=== PATIENT | male | born 1940 | race African-American/Black ===

== ENCOUNTER 2018-07-04 19:09 | Observation (INO) ==
[2018-07-04 20:57] LABS: Basophils % 0.2 % (0.0-0.8); Eosinophils # 0.1 10*3/uL (0.0-0.87); Eosinophils % 0.9 % (0.00-10.9); Hemoglobin 14.6 GM/DL (14.0-18.0); Immature Granulocytes % 0.4 %; Immature Granulocytes Absolute 0.05 #; Lymphocytes # 1.7 10*3/uL (1.4-4.0); Lymphocytes % 13.1 % (21.2-54.2); Mean Corpuscular HGB Conc 31.7 GM/DL (32-36); Mean Corpuscular Hemoglobin 29 PG (27-34); Mean Corpuscular Volume 92.4 FL (87-102); Mean Platelet Volume 8.6 FL (9.6-12.0); Neutrophils % 77.4 % (38.7-73.9); Platelet Count 283 T/CUMM (130-400); Red Blood Count 4.98 MC/CUMM (3.8-5.5); Red Cell Distribution Width 12.7 % (9.3-17.3); White Blood Count 12.9 T/CUMM (4-12)
[2018-07-04 21:48] LABS: Albumin 3.6 G/DL (3.4-5.0); Bilirubin,Total 0.8 MG/DL (0.2-1.0); Calcium 8.9 MG/DL (8.5-10.1); Osmolality,Calculated 274.7 MOS/KG (273-304); Potassium 3.9 MMOL/L (3.5-5.1); Total Protein 7.6 G/DL (6.4-8.3)
[2018-07-04] MEDS ORDERED: PROMETHAZINE 25 MG/1 ML VIAL IM PRN (22:33)
[2018-07-04] MEDS ORDERED: NICOTINE 21 MG/24 HR PATCH TRANSDERM PRN (22:33)
[2018-07-04] MEDS ORDERED: MORPHINE 4 MG/1 ML VIAL IV PRN (22:33)
[2018-07-04] MEDS ORDERED: ONDANSETRON 4 MG/2 ML VIAL IV PRN (22:33)
[2018-07-05] MEDS: SODIUM CHLORIDE 0.9% 1,000 ML IV SCH ×3 (00:20→21:39)
[2018-07-05] MEDS ORDERED: ACETAMINOPHEN 325 MG TABLET PO PRN (14:17)
[2018-07-05] MEDS: PANTOPRAZOLE 40 MG VIAL IV SCH ×2 (14:51→21:06)
[2018-07-05] MEDS: ROSUVASTATIN 20 MG TABLET PO SCH (21:06)
[2018-07-06] MEDS: SODIUM CHLORIDE 0.9% 1,000 ML IV SCH ×2 (04:34→15:55)
[2018-07-06] MEDS: PANTOPRAZOLE 40 MG VIAL IV SCH ×2 (08:55→20:40)
[2018-07-06] MEDS: ASPIRIN EC 81 MG TABLET PO SCH (08:56)
[2018-07-06] MEDS: ROSUVASTATIN 20 MG TABLET PO SCH (20:40)
[2018-07-07] MEDS: SODIUM CHLORIDE 0.9% 1,000 ML IV SCH ×2 (01:35→14:37)
[2018-07-07] MEDS ORDERED: LIDOCAINE 2% 5 ML VIAL ONE (10:00)
[2018-07-07] MEDS ORDERED: PROPOFOL 200 MG/20 ML VIAL IV ONE (10:00)
[2018-07-07] MEDS: ASPIRIN EC 81 MG TABLET PO SCH (11:14)
[2018-07-07] MEDS: PANTOPRAZOLE 40 MG VIAL IV SCH (11:14)
[2018-07-07] MEDS: SUCRALFATE 1 GM/10 ML UDCUP PO SCH ×2 (16:48→22:04)
[2018-07-07] MEDS: ROSUVASTATIN 20 MG TABLET PO SCH (22:03)
[2018-07-08 05:44] LABS: Basophils % 0.1 % (0.0-0.8); Eosinophils # 0.2 10*3/uL (0.0-0.87); Eosinophils % 2.1 % (0.00-10.9); Hematocrit 38.8 VOL% (42.0-52.0); Immature Granulocytes % 0.6 %; Immature Granulocytes Absolute 0.05 #; Lymphocytes # 1.2 10*3/uL (1.4-4.0); Lymphocytes % 13.8 % (21.2-54.2); Mean Corpuscular HGB Conc 31.7 GM/DL (32-36); Mean Corpuscular Hemoglobin 29 PG (27-34); Mean Corpuscular Volume 92.8 FL (87-102); Mean Platelet Volume 9.1 FL (9.6-12.0); Monocytes % 11.5 % (1.7-12.7); Neutrophils # 6.3 10*3/uL (1.4-7.4); Neutrophils % 71.9 % (38.7-73.9); Platelet Count 235 T/CUMM (130-400); Red Blood Count 4.18 MC/CUMM (3.8-5.5); Red Cell Distribution Width 12.2 % (9.3-17.3)
[2018-07-08 05:45] LABS: Hemoglobin 12.3 GM/DL (14.0-18.0); White Blood Count 8.7 T/CUMM (4-12)
[2018-07-08 05:55] LABS: Osmolality,Calculated 279.4 MOS/KG (273-304); Potassium 3.8 MMOL/L (3.5-5.1)
[2018-07-08] MEDS: SUCRALFATE 1 GM/10 ML UDCUP PO SCH (08:55)
[2018-07-08] MEDS: ASPIRIN EC 81 MG TABLET PO SCH (08:56)
[2018-07-08] MEDS ORDERED: PANTOPRAZOLE 40 MG TABLET PO SCH (09:00)
[2018-07-08 12:35] VITALS: BP 123/71
== END 2018-07-08 12:32 | disposition home or self-care (01) ==
LOC: N.EDINP 19:09 → N.ED 19:09 → SUATTDRO 22:33 → N.2E 23:17
PROVIDERS: ADMIT Internal Medicine Cardiovascular Disease; ATTEND Internal Medicine

== ENCOUNTER 2020-04-16 23:36 | Inpatient (IN) ==
[2020-04-16] MEDS ORDERED: SODIUM CHLORIDE 0.9% 1,000 ML IV STA (23:58)
[2020-04-17 00:28] LABS: Basophils % 0.3 % (0.0-0.8); Eosinophils % 0.1 % (0.00-10.9); Hemoglobin 15.5 GM/DL (14.0-18.0); Immature Granulocytes % 1.8 %; Immature Granulocytes Absolute 0.18 #; Lymphocytes % 9.4 % (21.2-54.2); Mean Corpuscular HGB Conc 31.6 GM/DL (32-36); Mean Corpuscular Volume 89.6 FL (87-102); Mean Platelet Volume 9.3 FL (9.6-12.0); Monocytes % 8.2 % (1.7-12.7); Neutrophils % 80.2 % (38.7-73.9); Platelet Count 238 T/CUMM (130-400); Red Blood Count 5.47 MC/CUMM (3.8-5.5); Red Cell Distribution Width 13.2 % (9.3-17.3); White Blood Count 10.2 T/CUMM (4-12)
[2020-04-17] MEDS ORDERED: ACETAMINOPHEN 500 MG TABLET PO STA (00:31)
[2020-04-17 00:35] LABS: INR 1.1; PT Patient Result 11.3 SECS (9.8-11.9)
[2020-04-17] MEDS ORDERED: AZITHROMYCIN INJ 500 MG in SODIUM CHLORIDE 0.9% 250 ML IV STA (00:59)
[2020-04-17 01:08] LABS: Albumin 2.5 G/DL (3.4-5.0); Total Protein 10.5 G/DL (6.4-8.3)
[2020-04-17 01:20] LABS: Osmolality,Calculated 278.8 MOS/KG (273-304)
[2020-04-17 01:24] LABS: Bilirubin,Total 0.58 MG/DL (0.2-1.0)
[2020-04-17] MEDS ORDERED: DEXAMETHASONE 10 MG/1 ML VIAL IV SCH (02:00)
[2020-04-17] MEDS ORDERED: DEXTROSE 50% 25 GM/50 ML VIAL IV PRN (03:07)
[2020-04-17] MEDS ORDERED: ONDANSETRON 4 MG/2 ML VIAL IV PRN (03:07)
[2020-04-17] MEDS ORDERED: BISACODYL 5 MG TABLET PO PRN (03:07)
[2020-04-17] MEDS ORDERED: GLUCAGON 1 MG VIAL IM PRN (03:07)
[2020-04-17] MEDS: cefTRIAXone 1,000 MG in SYRINGE 1 EACH IV SCH (05:36)
[2020-04-17] MEDS: ZINC SULFATE 220 MG CAPSULE PO SCH (09:13)
[2020-04-17] MEDS: CETIRIZINE 10 MG TABLET PO SCH (09:13)
[2020-04-17] MEDS: CHOLECALCIFEROL 1,000 UNIT TABLET PO SCH (09:13)
[2020-04-17] MEDS: FAMOTIDINE 20 MG TABLET PO SCH ×2 (09:13→20:28)
[2020-04-17] MEDS: ASCORBIC ACID 500 MG TABLET PO SCH (09:13)
[2020-04-17] MEDS: ENOXAPARIN 40 MG/0.4 ML SYRINGE SUBCUT SCH (09:13)
[2020-04-17] MEDS ORDERED: REMDESIVIR 200 MG in SODIUM CHLORIDE 0.9% 210 ML IV ONE (13:00)
[2020-04-17 14:55] LABS: Bacteria,Urine Occasional /HPF (Few); Bilirubin,Urine Negative (Negative); Blood, Urine Large mg/dL (Negative); Glucose,Urine (UA) Negative (Negative); Hyaline Casts,Urine 10 /LPF (0-3); Ketones,Urine Negative (Negative); Mucus,Urine Occasional /LPF (Occasional); Nitrite,Urine Negative (Negative); Protein,Urine 30 MG/DL; RBC,Urine 103 /HPF (0-4); Urine Appearance CLOUDY (Clear); Urine Color Amber (Yellow); Urine Specific Gravity 1.021 (1.001-1.035); WBC,Urine 375 /HPF (0-6)
[2020-04-18] MEDS: cefTRIAXone 1,000 MG in SYRINGE 1 EACH IV SCH (02:32)
[2020-04-18 06:43] LABS: Basophils % 0.2 % (0.0-0.8); Eosinophils % 0.1 % (0.00-10.9); Hematocrit 40.5 VOL% (42.0-52.0); Immature Granulocytes % 2.3 %; Immature Granulocytes Absolute 0.28 #; Lymphocytes # 0.8 10*3/uL (1.4-4.0); Lymphocytes % 6.4 % (21.2-54.2); Mean Corpuscular HGB Conc 31.6 GM/DL (32-36); Mean Corpuscular Volume 90.8 FL (87-102); Mean Platelet Volume 10.1 FL (9.6-12.0); Monocytes % 8.9 % (1.7-12.7); NRBC # 0.02 10*3/uL; Neutrophils % 82.1 % (38.7-73.9); Red Blood Count 4.46 MC/CUMM (3.8-5.5); Red Cell Distribution Width 13.4 % (9.3-17.3); White Blood Count 12.4 T/CUMM (4-12)
[2020-04-18 06:51] LABS: Hemoglobin 12.8 GM/DL (14.0-18.0); Platelet Count 298 T/CUMM (130-400)
[2020-04-18] MEDS: DEXAMETHASONE 10 MG/1 ML VIAL IV SCH (09:00)
[2020-04-18] MEDS: CHOLECALCIFEROL 1,000 UNIT TABLET PO SCH (09:00)
[2020-04-18] MEDS: ASCORBIC ACID 500 MG TABLET PO SCH (09:00)
[2020-04-18] MEDS: FAMOTIDINE 20 MG TABLET PO SCH ×2 (09:00→21:49)
[2020-04-18] MEDS: CETIRIZINE 10 MG TABLET PO SCH (09:00)
[2020-04-18] MEDS: ENOXAPARIN 40 MG/0.4 ML SYRINGE SUBCUT SCH (09:03)
[2020-04-18] MEDS: REMDESIVIR 100 MG in SODIUM CHLORIDE 0.9% 230 ML IV SCH (13:34)
[2020-04-18] MEDS: ACETAMINOPHEN 325 MG TABLET PO PRN (16:41)
[2020-04-18] MEDS: AZITHROMYCIN INJ 250 MG in SODIUM CHLORIDE 0.9% 250 ML IV SCH (21:53)
[2020-04-19] MEDS: cefTRIAXone 1,000 MG in SYRINGE 1 EACH IV SCH (04:15)
[2020-04-19 06:51] LABS: Basophils % 0.2 % (0.0-0.8); Hematocrit 37.5 VOL% (42.0-52.0); Immature Granulocytes % 1.8 %; Immature Granulocytes Absolute 0.23 #; Lymphocytes # 0.9 10*3/uL (1.4-4.0); Mean Corpuscular Volume 89.7 FL (87-102); Mean Platelet Volume 9.5 FL (9.6-12.0); Monocytes % 9.1 % (1.7-12.7); NRBC # 0.03 10*3/uL; Neutrophils % 81.9 % (38.7-73.9); Platelet Count 328 T/CUMM (130-400); Red Blood Count 4.18 MC/CUMM (3.8-5.5); Red Cell Distribution Width 13.4 % (9.3-17.3); White Blood Count 12.6 T/CUMM (4-12)
[2020-04-19 07:19] LABS: Albumin 2.1 G/DL (3.4-5.0); Bilirubin,Total 1.2 MG/DL (0.2-1.0); Calcium 8.6 MG/DL (8.5-10.1); Ferritin 990.3 ng/ml (26-388); Osmolality,Calculated 292.3 MOS/KG (273-304); Total Protein 6.3 G/DL (6.4-8.3)
[2020-04-19] MEDS ORDERED: BISACODYL 5 MG TABLET PO PRN (07:32)
[2020-04-19] MEDS: ENOXAPARIN 40 MG/0.4 ML SYRINGE SUBCUT SCH (08:42)
[2020-04-19] MEDS: FAMOTIDINE 20 MG TABLET PO SCH ×2 (08:42→21:48)
[2020-04-19] MEDS: DEXAMETHASONE 10 MG/1 ML VIAL IV SCH (08:42)
[2020-04-19] MEDS: CHOLECALCIFEROL 1,000 UNIT TABLET PO SCH (08:42)
[2020-04-19] MEDS: ZINC SULFATE 220 MG CAPSULE PO SCH (08:43)
[2020-04-19] MEDS: CETIRIZINE 10 MG TABLET PO SCH (08:43)
[2020-04-19] MEDS: ASCORBIC ACID 500 MG TABLET PO SCH (08:43)
[2020-04-19] MEDS: ASPIRIN CHEW 81 MG TABLET PO SCH (08:45)
[2020-04-19] MEDS ORDERED: FELODIPINE 10 MG PO SCH (09:00)
[2020-04-19] MEDS: REMDESIVIR 100 MG in SODIUM CHLORIDE 0.9% 230 ML IV SCH (12:00)
[2020-04-19] MEDS: ROSUVASTATIN 20 MG TABLET PO SCH (21:48)
[2020-04-19] MEDS: AZITHROMYCIN INJ 250 MG in SODIUM CHLORIDE 0.9% 250 ML IV SCH (21:48)
[2020-04-20] MEDS: cefTRIAXone 1,000 MG in SYRINGE 1 EACH IV SCH (03:00)
[2020-04-20 06:06] LABS: Basophils % 0.2 % (0.0-0.8); Hematocrit 38.3 VOL% (42.0-52.0); Hemoglobin 12.2 GM/DL (14.0-18.0); Immature Granulocytes % 2.2 %; Immature Granulocytes Absolute 0.23 #; Lymphocytes % 9.4 % (21.2-54.2); Mean Corpuscular HGB Conc 31.9 GM/DL (32-36); Mean Corpuscular Volume 90.3 FL (87-102); Monocytes % 10.6 % (1.7-12.7); NRBC # 0.02 10*3/uL; Neutrophils % 77.6 % (38.7-73.9); Platelet Count 297 T/CUMM (130-400); Red Blood Count 4.24 MC/CUMM (3.8-5.5); Red Cell Distribution Width 13.3 % (9.3-17.3); White Blood Count 10.6 T/CUMM (4-12)
[2020-04-20 06:42] LABS: Alanine Aminotransferase 36 U/L (16-61); Alkaline Phosphatase 47 U/L (45-117); Aspartate Amino Transferase 50 U/L (0-37); Bilirubin,Total < 0.39 MG/DL (0.2-1.0); Blood Urea Nitrogen 29 MG/DL (7-18); Calcium 8.5 MG/DL (8.5-10.1); Estimated Glom Filtration Rate 118 ML/MIN; Glucose 140 MG/DL (74-106)
[2020-04-20 06:44] LABS: Ferritin 698.6 ng/ml (26-388)
[2020-04-20 08:34] LABS: Anisocytosis 1+; Band Neutrophils 3 % (0-10); Lymphocytes 11 % (20-55); Metamyelocytes 1 %; Platelet Estimate Normal; Segmented Neutrophils 74 % (50-85); Total Cells Counted 100
[2020-04-20 08:35] LABS: Burr Cells Few; Macrocytosis 1+; Ovalocytes Few; Target Cells Few
[2020-04-20] MEDS: CHOLECALCIFEROL 1,000 UNIT TABLET PO SCH (09:51)
[2020-04-20] MEDS: FAMOTIDINE 20 MG TABLET PO SCH ×2 (09:52→21:08)
[2020-04-20] MEDS: DEXAMETHASONE 10 MG/1 ML VIAL IV SCH (09:52)
[2020-04-20] MEDS: ENOXAPARIN 40 MG/0.4 ML SYRINGE SUBCUT SCH (09:52)
[2020-04-20] MEDS: CETIRIZINE 10 MG TABLET PO SCH (09:52)
[2020-04-20] MEDS: ASPIRIN CHEW 81 MG TABLET PO SCH (09:52)
[2020-04-20] MEDS: ASCORBIC ACID 500 MG TABLET PO SCH (09:52)
[2020-04-20] MEDS: REMDESIVIR 100 MG in SODIUM CHLORIDE 0.9% 230 ML IV SCH (13:50)
[2020-04-20] MEDS: ROSUVASTATIN 20 MG TABLET PO SCH (21:08)
[2020-04-20] MEDS: VANCOMYCIN INJ 1,250 MG in SODIUM CHLORIDE 0.9% 250 ML IV SCH (21:12)
[2020-04-21] MEDS: AZITHROMYCIN INJ 250 MG in SODIUM CHLORIDE 0.9% 250 ML IV SCH (02:33)
[2020-04-21] MEDS: cefTRIAXone 1,000 MG in SYRINGE 1 EACH IV SCH (05:11)
[2020-04-21 06:47] LABS: Calcium 8.4 MG/DL (8.5-10.1); Osmolality,Calculated 285.3 MOS/KG (273-304)
[2020-04-21] MEDS: FAMOTIDINE 20 MG TABLET PO SCH ×2 (09:45→20:09)
[2020-04-21] MEDS: ENOXAPARIN 40 MG/0.4 ML SYRINGE SUBCUT SCH (09:45)
[2020-04-21] MEDS: DEXAMETHASONE 10 MG/1 ML VIAL IV SCH (09:45)
[2020-04-21] MEDS: ASPIRIN CHEW 81 MG TABLET PO SCH (09:45)
[2020-04-21] MEDS: ZINC SULFATE 220 MG CAPSULE PO SCH (09:46)
[2020-04-21] MEDS: CHOLECALCIFEROL 1,000 UNIT TABLET PO SCH (09:46)
[2020-04-21] MEDS: CETIRIZINE 10 MG TABLET PO SCH (09:46)
[2020-04-21] MEDS: ASCORBIC ACID 500 MG TABLET PO SCH (09:46)
[2020-04-21] MEDS: VANCOMYCIN INJ 1,250 MG in SODIUM CHLORIDE 0.9% 250 ML IV SCH ×2 (11:20→20:14)
[2020-04-21] MEDS: REMDESIVIR 100 MG in SODIUM CHLORIDE 0.9% 230 ML IV SCH (14:35)
[2020-04-21] MEDS: ROSUVASTATIN 20 MG TABLET PO SCH (20:09)
[2020-04-22] MEDS: cefTRIAXone 1,000 MG in SYRINGE 1 EACH IV SCH (02:45)
[2020-04-22 05:14] LABS: Basophils # 0.1 10*3/uL (0.0-0.2); Basophils % 0.4 % (0.0-0.8); Eosinophils # 0.1 10*3/uL (0.0-0.87); Eosinophils % 0.8 % (0.00-10.9); Hematocrit 36.6 VOL% (42.0-52.0); Immature Granulocytes % 5.1 %; Immature Granulocytes Absolute 0.61 #; Lymphocytes # 1.8 10*3/uL (1.4-4.0); Lymphocytes % 14.9 % (21.2-54.2); Mean Corpuscular HGB Conc 32.8 GM/DL (32-36); Mean Corpuscular Volume 88.2 FL (87-102); Mean Platelet Volume 9.3 FL (9.6-12.0); Monocytes % 11.3 % (1.7-12.7); Neutrophils % 67.5 % (38.7-73.9); Platelet Count 381 T/CUMM (130-400); Red Blood Count 4.15 MC/CUMM (3.8-5.5); Red Cell Distribution Width 13.2 % (9.3-17.3)
[2020-04-22 05:58] LABS: Bilirubin,Total 0.4 MG/DL (0.2-1.0); Calcium 7.9 MG/DL (8.5-10.1); Osmolality,Calculated 278.5 MOS/KG (273-304); Total Protein 5.7 G/DL (6.4-8.3)
[2020-04-22 06:49] LABS: Band Neutrophils 2 % (0-10); Hypochromasia 1+; Lymphocytes 17 % (20-55); Metamyelocytes 6 %; Segmented Neutrophils 65 % (50-85); Total Cells Counted 100
[2020-04-22 06:50] LABS: Ovalocytes Slight; Platelet Estimate Normal; Polychromasia Slight
[2020-04-22] MEDS ORDERED: POTASSIUM CHLORIDE 20 MEQ TABLET PO PRN (07:31)
[2020-04-22] MEDS: VANCOMYCIN INJ 1,250 MG in SODIUM CHLORIDE 0.9% 250 ML IV SCH ×2 (08:33→20:29)
[2020-04-22] MEDS: ENOXAPARIN 40 MG/0.4 ML SYRINGE SUBCUT SCH (08:34)
[2020-04-22] MEDS: AZITHROMYCIN 250 MG TABLET PO SCH (08:35)
[2020-04-22] MEDS: DEXAMETHASONE 4 MG TABLET PO SCH (08:35)
[2020-04-22] MEDS: CETIRIZINE 10 MG TABLET PO SCH (08:35)
[2020-04-22] MEDS: ASPIRIN CHEW 81 MG TABLET PO SCH (08:35)
[2020-04-22] MEDS: ASCORBIC ACID 500 MG TABLET PO SCH (08:35)
[2020-04-22] MEDS: CHOLECALCIFEROL 1,000 UNIT TABLET PO SCH (08:35)
[2020-04-22] MEDS: FAMOTIDINE 20 MG TABLET PO SCH ×2 (08:36→20:24)
[2020-04-22] MEDS: ROSUVASTATIN 20 MG TABLET PO SCH (20:24)
[2020-04-23] MEDS: cefTRIAXone 1,000 MG in SYRINGE 1 EACH IV SCH (03:25)
[2020-04-23 06:41] LABS: Calcium 8.5 MG/DL (8.5-10.1); Osmolality,Calculated 278.7 MOS/KG (273-304)
[2020-04-23] MEDS: ENOXAPARIN 40 MG/0.4 ML SYRINGE SUBCUT SCH (08:26)
[2020-04-23] MEDS: ASCORBIC ACID 500 MG TABLET PO SCH (08:26)
[2020-04-23] MEDS: CHOLECALCIFEROL 1,000 UNIT TABLET PO SCH (08:27)
[2020-04-23] MEDS: DEXAMETHASONE 4 MG TABLET PO SCH (08:27)
[2020-04-23] MEDS: AZITHROMYCIN 250 MG TABLET PO SCH (08:27)
[2020-04-23] MEDS: ASPIRIN CHEW 81 MG TABLET PO SCH (08:27)
[2020-04-23] MEDS: ZINC SULFATE 220 MG CAPSULE PO SCH (08:27)
[2020-04-23] MEDS: FAMOTIDINE 20 MG TABLET PO SCH ×2 (08:28→20:09)
[2020-04-23] MEDS: VANCOMYCIN INJ 1,250 MG in SODIUM CHLORIDE 0.9% 250 ML IV SCH (08:28)
[2020-04-23] MEDS: CETIRIZINE 10 MG TABLET PO SCH (12:28)
[2020-04-23] MEDS: ROSUVASTATIN 20 MG TABLET PO SCH (20:09)
[2020-04-24] MEDS: cefTRIAXone 1,000 MG in SYRINGE 1 EACH IV SCH (04:30)
[2020-04-24 05:39] LABS: Basophils % 0.2 % (0.0-0.8); Hematocrit 37.1 VOL% (42.0-52.0); Immature Granulocytes % 3.8 %; Immature Granulocytes Absolute 0.57 #; Lymphocytes # 1.2 10*3/uL (1.4-4.0); Lymphocytes % 8.1 % (21.2-54.2); Mean Corpuscular HGB Conc 32.3 GM/DL (32-36); Mean Corpuscular Volume 87.7 FL (87-102); Neutrophils % 80.9 % (38.7-73.9); Platelet Count 465 T/CUMM (130-400); Red Blood Count 4.23 MC/CUMM (3.8-5.5); Red Cell Distribution Width 13.2 % (9.3-17.3); White Blood Count 14.9 T/CUMM (4-12)
[2020-04-24 05:58] LABS: Albumin 2.1 G/DL (3.4-5.0); Bilirubin,Total 1.1 MG/DL (0.2-1.0); Calcium 8.6 MG/DL (8.5-10.1); Osmolality,Calculated 277.8 MOS/KG (273-304); Total Protein 5.9 G/DL (6.4-8.3)
[2020-04-24 06:18] LABS: Hypochromasia 2+; Lymphocytes 8 % (20-55); Myelocytes 1 %; Segmented Neutrophils 84 % (50-85); Total Cells Counted 100
[2020-04-24 06:19] LABS: Microcytosis 1+; Platelet Estimate Increased; Target Cells Slight
[2020-04-24] MEDS: ASPIRIN CHEW 81 MG TABLET PO SCH (08:39)
[2020-04-24] MEDS: DEXAMETHASONE 4 MG TABLET PO SCH (08:39)
[2020-04-24] MEDS: ASCORBIC ACID 500 MG TABLET PO SCH (08:40)
[2020-04-24] MEDS: AZITHROMYCIN 250 MG TABLET PO SCH (08:40)
[2020-04-24] MEDS: FAMOTIDINE 20 MG TABLET PO SCH ×2 (08:40→21:34)
[2020-04-24] MEDS: CETIRIZINE 10 MG TABLET PO SCH (08:40)
[2020-04-24] MEDS: ENOXAPARIN 40 MG/0.4 ML SYRINGE SUBCUT SCH (08:40)
[2020-04-24] MEDS: CHOLECALCIFEROL 1,000 UNIT TABLET PO SCH (12:14)
[2020-04-24] MEDS: ROSUVASTATIN 20 MG TABLET PO SCH (21:34)
[2020-04-25 06:03] LABS: Basophils # 0.1 10*3/uL (0.0-0.2); Basophils % 0.3 % (0.0-0.8); Hematocrit 37.8 VOL% (42.0-52.0); Hemoglobin 12.4 GM/DL (14.0-18.0); Immature Granulocytes % 4.1 %; Immature Granulocytes Absolute 0.63 #; Lymphocytes # 1.3 10*3/uL (1.4-4.0); Lymphocytes % 8.5 % (21.2-54.2); Mean Corpuscular HGB Conc 32.8 GM/DL (32-36); Mean Corpuscular Volume 87.7 FL (87-102); Mean Platelet Volume 9.1 FL (9.6-12.0); Monocytes % 6.8 % (1.7-12.7); Neutrophils % 80.3 % (38.7-73.9); Platelet Count 473 T/CUMM (130-400); Red Blood Count 4.31 MC/CUMM (3.8-5.5); Red Cell Distribution Width 13.2 % (9.3-17.3); White Blood Count 15.3 T/CUMM (4-12)
[2020-04-25 06:07] LABS: Calcium 8.6 MG/DL (8.5-10.1); Osmolality,Calculated 278.7 MOS/KG (273-304)
[2020-04-25 06:34] LABS: Atypical Lymphocytes Few; Hypochromasia 1+; Lymphocytes 9 % (20-55); Microcytosis Slight; Platelet Estimate Adequate; Segmented Neutrophils 85 % (50-85); Total Cells Counted 100
[2020-04-25] MEDS: CHOLECALCIFEROL 1,000 UNIT TABLET PO SCH (10:40)
[2020-04-25] MEDS: ASPIRIN CHEW 81 MG TABLET PO SCH (10:40)
[2020-04-25] MEDS: ZINC SULFATE 220 MG CAPSULE PO SCH (10:40)
[2020-04-25] MEDS: DEXAMETHASONE 4 MG TABLET PO SCH (10:41)
[2020-04-25] MEDS: FAMOTIDINE 20 MG TABLET PO SCH ×2 (10:41→22:03)
[2020-04-25] MEDS: CETIRIZINE 10 MG TABLET PO SCH (10:41)
[2020-04-25] MEDS: ASCORBIC ACID 500 MG TABLET PO SCH (10:41)
[2020-04-25] MEDS: AZITHROMYCIN 250 MG TABLET PO SCH (10:41)
[2020-04-25] MEDS: ENOXAPARIN 40 MG/0.4 ML SYRINGE SUBCUT SCH (10:42)
[2020-04-25] MEDS: ROSUVASTATIN 20 MG TABLET PO SCH (22:03)
[2020-04-26 05:25] LABS: Basophils # 0.1 10*3/uL (0.0-0.2); Basophils % 0.3 % (0.0-0.8); Hematocrit 37.2 VOL% (42.0-52.0); Immature Granulocytes % 4.5 %; Immature Granulocytes Absolute 0.71 #; Lymphocytes # 1.2 10*3/uL (1.4-4.0); Lymphocytes % 7.2 % (21.2-54.2); Mean Corpuscular HGB Conc 32.3 GM/DL (32-36); Mean Corpuscular Volume 87.7 FL (87-102); Mean Platelet Volume 9.1 FL (9.6-12.0); Monocytes % 6.2 % (1.7-12.7); Neutrophils % 81.8 % (38.7-73.9); Platelet Count 454 T/CUMM (130-400); Red Blood Count 4.24 MC/CUMM (3.8-5.5); Red Cell Distribution Width 13.1 % (9.3-17.3)
[2020-04-26 05:45] LABS: Bilirubin,Total 0.5 MG/DL (0.2-1.0); Calcium 8.7 MG/DL (8.5-10.1); Osmolality,Calculated 278.8 MOS/KG (273-304); Total Protein 5.8 G/DL (6.4-8.3)
[2020-04-26 05:52] LABS: Lymphocytes 11 % (20-55); Platelet Estimate Adequate; Segmented Neutrophils 85 % (50-85); Total Cells Counted 100
[2020-04-26 05:53] LABS: Hypochromasia 1+; Microcytosis Slight
[2020-04-26] MEDS: CHOLECALCIFEROL 1,000 UNIT TABLET PO SCH (09:51)
[2020-04-26] MEDS: FAMOTIDINE 20 MG TABLET PO SCH ×2 (09:51→20:35)
[2020-04-26] MEDS: ZINC SULFATE 220 MG CAPSULE PO SCH (09:51)
[2020-04-26] MEDS: ASPIRIN CHEW 81 MG TABLET PO SCH (09:51)
[2020-04-26] MEDS: AZITHROMYCIN 250 MG TABLET PO SCH (09:52)
[2020-04-26] MEDS: DEXAMETHASONE 4 MG TABLET PO SCH (09:52)
[2020-04-26] MEDS: CETIRIZINE 10 MG TABLET PO SCH (09:52)
[2020-04-26] MEDS: ASCORBIC ACID 500 MG TABLET PO SCH (09:52)
[2020-04-26] MEDS: ENOXAPARIN 40 MG/0.4 ML SYRINGE SUBCUT SCH (09:53)
[2020-04-26] MEDS: ACETAMINOPHEN 325 MG TABLET PO PRN (20:35)
[2020-04-26] MEDS: ROSUVASTATIN 20 MG TABLET PO SCH (20:35)
[2020-04-27 05:49] LABS: Basophils % 0.2 % (0.0-0.8); Hematocrit 37.2 VOL% (42.0-52.0); Hemoglobin 12.4 GM/DL (14.0-18.0); Immature Granulocytes Absolute 0.72 #; Lymphocytes # 1.6 10*3/uL (1.4-4.0); Lymphocytes % 9.2 % (21.2-54.2); Mean Corpuscular HGB Conc 33.3 GM/DL (32-36); Mean Corpuscular Volume 87.7 FL (87-102); Mean Platelet Volume 8.7 FL (9.6-12.0); Monocytes % 6.8 % (1.7-12.7); Neutrophils % 79.8 % (38.7-73.9); Platelet Count 461 T/CUMM (130-400); Red Blood Count 4.24 MC/CUMM (3.8-5.5); Red Cell Distribution Width 13.5 % (9.3-17.3); White Blood Count 17.8 T/CUMM (4-12)
[2020-04-27 06:20] LABS: Hypochromasia 1+; Lymphocytes 8 % (20-55); Microcytosis 1+; Ovalocytes Slight; Platelet Estimate Adequate; Segmented Neutrophils 88 % (50-85); Total Cells Counted 100
[2020-04-27 06:21] LABS: Albumin 2.4 G/DL (3.4-5.0); Calcium 8.8 MG/DL (8.5-10.1); Osmolality,Calculated 276.8 MOS/KG (273-304); Total Protein 6.2 G/DL (6.4-8.3)
[2020-04-27] MEDS: CHOLECALCIFEROL 1,000 UNIT TABLET PO SCH (09:09)
[2020-04-27] MEDS: ASPIRIN CHEW 81 MG TABLET PO SCH (09:09)
[2020-04-27] MEDS: FAMOTIDINE 20 MG TABLET PO SCH ×2 (09:10→22:29)
[2020-04-27] MEDS: CETIRIZINE 10 MG TABLET PO SCH (09:10)
[2020-04-27] MEDS: ZINC SULFATE 220 MG CAPSULE PO SCH (09:10)
[2020-04-27] MEDS: DEXAMETHASONE 4 MG TABLET PO SCH (09:10)
[2020-04-27] MEDS: ASCORBIC ACID 500 MG TABLET PO SCH (09:10)
[2020-04-27] MEDS: AZITHROMYCIN 250 MG TABLET PO SCH (09:10)
[2020-04-27] MEDS: ENOXAPARIN 40 MG/0.4 ML SYRINGE SUBCUT SCH (09:11)
[2020-04-27] MEDS: ROSUVASTATIN 20 MG TABLET PO SCH (22:29)
[2020-04-28 05:08] LABS: Basophils % 0.1 % (0.0-0.8); Hematocrit 36.3 VOL% (42.0-52.0); Immature Granulocytes % 2.3 %; Immature Granulocytes Absolute 0.41 #; Lymphocytes # 1.6 10*3/uL (1.4-4.0); Lymphocytes % 9.3 % (21.2-54.2); Mean Corpuscular HGB Conc 33.1 GM/DL (32-36); Mean Corpuscular Volume 88.8 FL (87-102); Mean Platelet Volume 8.9 FL (9.6-12.0); Monocytes % 6.9 % (1.7-12.7); Neutrophils % 81.4 % (38.7-73.9); Platelet Count 421 T/CUMM (130-400); Red Blood Count 4.09 MC/CUMM (3.8-5.5); Red Cell Distribution Width 13.4 % (9.3-17.3); White Blood Count 17.7 T/CUMM (4-12)
[2020-04-28 05:26] LABS: Calcium 8.5 MG/DL (8.5-10.1); Osmolality,Calculated 279.5 MOS/KG (273-304)
[2020-04-28] MEDS ORDERED: MENTHOL/ZINC OXIDE OINT 71 GM JAR TOP SCH (09:00)
[2020-04-28] MEDS: ENOXAPARIN 40 MG/0.4 ML SYRINGE SUBCUT SCH (09:35)
[2020-04-28] MEDS: CHOLECALCIFEROL 1,000 UNIT TABLET PO SCH (09:35)
[2020-04-28] MEDS: AZITHROMYCIN 250 MG TABLET PO SCH (09:35)
[2020-04-28] MEDS: FAMOTIDINE 20 MG TABLET PO SCH (09:35)
[2020-04-28] MEDS: ASPIRIN CHEW 81 MG TABLET PO SCH (09:35)
[2020-04-28] MEDS: DEXAMETHASONE 4 MG TABLET PO SCH (09:35)
[2020-04-28] MEDS: CETIRIZINE 10 MG TABLET PO SCH (09:35)
[2020-04-28] MEDS: ASCORBIC ACID 500 MG TABLET PO SCH (09:35)
[2020-04-28 11:35] VITALS: BP 148/62
== END 2020-04-28 13:30 | disposition home health service (06) | DRG 177 ==
LOC: N.ED 23:36 → SUATTDRO 04-17 03:01 → N.EDINP 04-17 03:01 → N.2E 04-17 04:12
PROVIDERS: ADMIT Family Medicine; ATTEND Internal Medicine